=== PATIENT | female | born 1950 | race Caucasian/White ===

== ENCOUNTER 2021-10-04 12:14 | Observation (INO) | payer OTHER, MEDICAID ==
[~2021-10-04] VITALS: Ht 157.5 cm; Wt 44.5 kg
[2021-10-04] MEDS ORDERED: MORPHINE SULFATE INJECTION 2 MG/ML SYRG IV ONE (13:30)
[2021-10-04] MEDS ORDERED: ONDANSETRON HCL 4 MG/2 ML VIAL IV ONE ×2 (13:30→16:45)
[2021-10-04 15:12] LABS: Basophils # (auto) 0 10 ^3/uL (0-0.2); Basophils % (auto) 0.2 % (0.0-2.0); Eosinophils # (auto) 0 10 ^3/uL (0-0.8); Eosinophils % (auto) 0.6 % (0.0-7.0); Hematocrit 22.5 % (36.0-46.0); Lymphocytes # (auto) 0.8 10 ^3/uL (0.4-5.4); Lymphocytes % (auto) 16.4 % (10.0-50.0); Mean Corpuscular Hemoglobin 20.8 pg (28.0-32.0); Mean Corpuscular Hgb Conc. 30.2 g/dL (32.0-36.0); Monocytes # (auto) 0.5 10 ^3/uL (0-1.3); Monocytes % (auto) 9.8 % (0.0-12.0); Neutrophils # (auto) 3.4 10 ^3/uL (1.6-8.6); Nucleated Red Blood Cells % 0.2 %; Red Blood Cells 3.27 10^6/uL (4.0-5.20); White Blood Cell 4.7 10^3/uL (4.4-10.8)
[2021-10-04 15:15] LABS: Hemoglobin 6.8 g/dL (12.2-16.2); Red Cell Distribution Width 22.3 % (11.8-14.3)
[2021-10-04 15:23] LABS: Albumin 2.3 g/dL (3.4-5.0); BUN/Creatinine Ratio 37.1; Calcium 7.1 mg/dL (8.5-10.1); Potassium 3.1 mmol/L (3.5-5.1)
[2021-10-04 15:26] LABS: Bilirubin, Total 0.3 mg/dL (0.2-1.0); Total Protein 6.4 g/dL (6.4-8.2)
[2021-10-04 15:33] LABS: INR 1.1 (0.9-1.15); Partial Thromboplastin Time 25.4 sec (23.6-33.0)
[2021-10-04] MEDS ORDERED: HYDROmorphone HCL 2 MG/ML VL IV ONE (16:00)
[2021-10-04] MEDS ORDERED: ONDANSETRON HCL 4 MG/2 ML VIAL IV PRN (16:30)
[2021-10-04] MEDS ORDERED: HYDROcodone-ACET 5/325MG TAB PO PRN (16:30)
[2021-10-04] MEDS ORDERED: NITROGLYCERIN 0.4 MG SL TAB SL PRN (16:30)
[2021-10-04] MEDS ORDERED: MORPHINE SULFATE INJECTION 2 MG/ML SYRG IV PRN ×2 (16:30)
[2021-10-04] MEDS ORDERED: DOCUSATE SOD 100 MG CAP PO PRN (16:30)
[2021-10-04] MEDS ORDERED: LORATADINE 10 MG TAB PO ONE (16:30)
[2021-10-04] MEDS ORDERED: ACETAMINOPHEN 325 MG TAB PO ONE (16:45)
[2021-10-04] MEDS ORDERED: ACETAMINOPHEN 325 MG TAB PO PRN (16:45)
[2021-10-04 18:02] LABS: % Iron Saturation 3.1 % (15-50)
[2021-10-04 23:00] VITALS: BP 132/57
[2021-10-04 23:15] VITALS: BP 136/63
[2021-10-05 01:34] VITALS: BP 158/72
[2021-10-05 02:35] VITALS: BP 145/66
[2021-10-05 02:50] VITALS: BP 153/71
[2021-10-05 05:08] VITALS: BP 164/67
[2021-10-05 06:41] LABS: Basophils # (auto) 0 10 ^3/uL (0-0.2); Basophils % (auto) 0.6 % (0.0-2.0); Eosinophils # (auto) 0.1 10 ^3/uL (0-0.8); Eosinophils % (auto) 1.3 % (0.0-7.0)
[2021-10-05 06:46] LABS: Hemoglobin 9.7 g/dL (12.2-16.2); Lymphocytes # (auto) 0.7 10 ^3/uL (0.4-5.4); Lymphocytes % (auto) 15.1 % (10.0-50.0); Mean Corpuscular Hgb Conc. 31.7 g/dL (32.0-36.0); Monocytes # (auto) 0.3 10 ^3/uL (0-1.3); Monocytes % (auto) 7.6 % (0.0-12.0); Neutrophils # (auto) 3.3 10 ^3/uL (1.6-8.6); Neutrophils % (auto) 75.4 % (37.0-80.0); Nucleated Red Blood Cells % 0.6 %; Red Blood Cells 4.17 10^6/uL (4.0-5.20); Red Cell Distribution Width 23.6 % (11.8-14.3); White Blood Cell 4.3 10^3/uL (4.4-10.8)
[2021-10-05 06:47] LABS: Hematocrit 30.5 % (36.0-46.0); Mean Corpuscular Hemoglobin 23.3 pg (28.0-32.0); Mean Corpuscular Volume 73.3 fL (80.0-100.0)
[2021-10-05 06:56] LABS: Potassium 3.4 mmol/L (3.5-5.1)
[2021-10-05 07:07] LABS: Albumin 2.3 g/dL (3.4-5.0); Bilirubin, Total 1.3 mg/dL (0.2-1.0); Calcium 7.7 mg/dL (8.5-10.1); Total Protein 7.4 g/dL (6.4-8.2)
[2021-10-05] MEDS ORDERED: ASCO500T11 PO (08:29)
[2021-10-05] MEDS ORDERED: FERR-20 PO (08:29)
[2021-10-05] MEDS ORDERED: HYDR-4833 PO (08:30)
[2021-10-05 09:48] VITALS: BP 144/62
== END 2021-10-05 10:44 | disposition home or self-care (01) ==
LOC: ER 12:14 → OVERFLOW 16:33
PROVIDERS: ADMIT Hospitalist; ATTEND Hospitalist
DX: S52.501A Unspecified fracture of the lower end of right radius, initial encounter for closed fracture (principal); Z20.822 Contact with and (suspected) exposure to COVID-19; S52.301A Unspecified fracture of shaft of right radius, initial encounter for closed fracture; S62.101A Fracture of unspecified carpal bone, right wrist, initial encounter for closed fracture; D50.9 Iron deficiency anemia, unspecified; E87.6 Hypokalemia; Z90.710 Acquired absence of both cervix and uterus; W01.0XXA Fall on same level from slipping, tripping and stumbling without subsequent striking against object, initial encounter; Y93.9 Activity, unspecified; Y92.007 Garden or yard of unspecified non-institutional (private) residence as the place of occurrence of the external cause; Y99.9 Unspecified external cause status; Y99.8 Other external cause status
CPT/HCPCS: 29125; 36415; 71045; 73110; 80053; 83540; 83550; 85025; 85045; 85610; 85730; 86850; 86900; 86901; 86920; 87426; 93005; 96374; 96375; 96376; 99291; G0378; J1170; J2270; J2405; P9016; U0003